=== PATIENT | male | born 1990 ===

== ENCOUNTER 2021-03-22 01:53 | Emergency (ER) | payer MEDICAID ==
[~2021-03-22] VITALS: Ht 172.7 cm; Wt 122.8 kg
[2021-03-22 02:02] VITALS: BP 154/94
--- NOTE | 2021-03-22 03:46 | NUR ---
PT CALLEED FOR ROOM. NA X 1
--- NOTE | 2021-03-22 04:14 | NUR ---
NA X 2
--- NOTE | 2021-03-22 04:45 | NUR ---
NA X 3
== END 2021-03-22 04:47 | disposition left against medical advice (07) ==
LOC: ED 04:40
DX: R07.89 Other chest pain (principal); Z53.21 Procedure and treatment not carried out due to patient leaving prior to being seen by health care provider
CPT/HCPCS: 93005